=== PATIENT | female | born 1950 | race Caucasian/White ===

== ENCOUNTER → 2016-11-09 | Outpatient (CLI) | payer MEDICARE ==
[~2016-11-09] MED LIST: 1-ME1LIQ PO; ASPI325T PO; ATEN-102 PO; BENA20TA PO; COQ-100C2 PO; FISH120014 PO; FURO1TAB93 PO; GARC500T PO; GLUCTAB PO; GREE1CAP PO; HYDR-2768 PO; K-TA10TA5 PO; LEVO50IN PO; LORTA5 PO; MILK200C PO; RASP100C PO
[2016-11-09 10:07] LABS: BLOOD GAS CARBOXYHEMOGLOBIN 1.9 % (0-4); BLOOD GAS HCO3 23 mmol/L (22-26); BLOOD GAS METHEMOGLOBIN 1.2 % (0-2); BLOOD GAS O2 HGB SATURATION 94 % (90-100); BLOOD GAS PCO2 38 mmHg (38-42); BLOOD GAS PO2 89 mmHg (61-120); BLOOD GAS TOTAL HGB 14.3 G/DL (12.0-16.0); CRITICAL VALUE NO; DRAW SITE RT RADIAL; FIO2 21 %; NUMBER OF ARTERIAL PUNCTURES 1; TEMP CORR TO 98.6
[2016-11-09 10:08] LABS: STAT NO; ULNAR PULSE PRESENT
--- NOTE | 2016-11-16 09:01 | RSPPFT ---
DATE OF PROCEDURE: 11/09/16 COMMENTS: Spirometry with FVC of 2.7 predicted 3.2, FEV1 of 1.6 predicted 2.5, FEV1/FVC ratio 60% predicted 81. Post-bronchodilator FEV1 increases to 2.1. Mild air trapping is present with RV at 2.6 predicted 2.2. DLCO is within the predicted when corrected for alveolar volume. IMPRESSION: On the basis of the above, patient has an obstructive lung defect with responsiveness to acutely inhaled bronchodilator. Air trapping is present.
== END ==
LOC: HRSP 08:55
PROVIDERS: ATTEND Internal Medicine Pulmonary Disease
DX: J44.9 Chronic obstructive pulmonary disease, unspecified (principal)
CPT/HCPCS: 36600; 82805; 94060; 94620; 94726; 94729